=== PATIENT | male | born 1995 | race Caucasian/White ===

== ENCOUNTER 2018-11-28 19:18 | Emergency (ER) | payer OTHER ==
[2018-11-28 19:28] VITALS: BP 142/76
[2018-11-28] MEDS ORDERED: Ondansetron ODT TAB* 4 MG PO ONE (19:47)
--- NOTE | 2018-11-28 19:47 | UC ---
Abdominal Pain Male HPI - HPI Summary HPI Summary: c/o nausea and vomiting for 24 hours and diarrhea for 3-4 days. 3 other members of the family have had similar symptoms---no fevers or chills - History of Current Complaint Chief Complaint: UCGeneralIllness Stated Complaint: FLU-LIKE SYM Time Seen by Provider: 11/28/18 19:30 Hx Obtained From: Patient Onset/Duration: Sudden Onset, Lasting Days - 3-4 Timing: Constant Severity Initially: Mild Severity Currently: Mild Pain Intensity: 6 Pain Scale Used: 0-10 Numeric Location: Diffuse Radiates: No Character: Cramping Aggravating Factor(s): Food Alleviating Factor(s): Nothing Associated Signs And Symptoms: Positive: Nausea, Vomiting, Diarrhea - Allergies/Home Medications Allergies/Adverse Reactions: Allergies Allergy/AdvReac Type Severity Reaction Status Date / Time No Known Allergies Allergy Verified 11/28/18 19:28 Home Medications: Home Medications Pantoprazole TAB * [Protonix TAB*] 1 tab PO DAILY 11/28/18 [History Confirmed ] PMH/Surg Hx/FS Hx/Imm Hx Previously Healthy: No GI/ History: Gastroesophageal Reflux - Surgical History Surgical History: None - Family History Known Family History: Positive: None - Social History Occupation: Employed Full-time Lives: With Family Alcohol Use: None Substance Use Type: None Smoking Status (MU): Never Smoked Tobacco Review of Systems All Other Systems Reviewed And Are Negative: Yes Constitutional: Positive: Fatigue Skin: Positive: Negative Eyes: Positive: Negative ENT: Positive: Negative Respiratory: Positive: Negative Cardiovascular: Positive: Negative Gastrointestinal: Positive: Abdominal Pain, Vomiting, Diarrhea, Nausea Genitourinary: Positive: Negative Motor: Positive: Negative Neurovascular: Positive: Negative Musculoskeletal: Positive: Negative Neurological: Positive: Negative Psychological: Positive: Negative Is Patient Immunocompromised?: No Physical Exam Triage Information Reviewed: Yes Appearance: Well-Nourished, Ill-Appearing - mild, Pain Distress - mild Vital Signs: Initial Vital Signs Temp 99.2 F 11/28/18 19:24 Pulse 95 11/28/18 19:24 Resp 16 11/28/18 19:24 BP 142/76 11/28/18 19:24 Pulse Ox 96 11/28/18 19:24 Vital Signs Reviewed: Yes Eye Exam: Normal Eyes: Positive: Conjunctiva Clear ENT Exam: Normal ENT: Positive: Normal ENT inspection, Hearing grossly normal, Pharynx normal, TMs normal, Uvula midline. Negative: Nasal congestion, Trismus, Muffled voice, Hoarse voice, Dental tenderness, Sinus tenderness Dental Exam: Normal Neck exam: Normal Neck: Positive: Supple, Nontender, No Lymphadenopathy Respiratory Exam: Normal Respiratory: Positive: Chest non-tender, Lungs clear, Normal breath sounds, No respiratory distress, No accessory muscle use Cardiovascular Exam: Normal Cardiovascular: Positive: RRR, No Murmur, Pulses Normal, Brisk Capillary Refill Abdominal Exam: Other Abdomen Description: Positive: No Organomegaly, Soft, Other: - diffuse discomfort Bowel Sounds: Positive: Present Musculoskeletal Exam: Normal Musculoskeletal: Positive: Strength Intact, ROM Intact, No Edema Neurological Exam: Normal Neurological: Positive: Alert, Muscle Tone Normal Psychological Exam: Normal Skin Exam: Normal Abd Pain Male Course/Dx - Course Course Of Treatment: return to clear liquids with 30 cc at a time and advance sloly follow with pcp and re-check bp in next 1-2 weeks with pcp - Differential Dx/Clinical Impression Provider Diagnosis: Hypertension, Gastroenteritis Discharge - Sign-Out/Discharge Documenting (check all that apply): Patient Departure All imaging exams completed and their final reports reviewed: No Studies - Discharge Plan Condition: Stable Disposition: HOME Prescriptions: Ondansetron ODT TAB* [Zofran 4 MG Odt TAB*] 4 mg PO Q6H PRN #8 tab.odt PRN Reason: Nausea/Vomiting Patient Education Materials: Gastroenteritis (ED), Acute Nausea and Vomiting ( ED), Hypertension (ED), Nutrition Tips for Relief of Diarrhea (ED) Forms: *Work Release Referrals: [facility] [Outside] - 2 Days - Billing Disposition and Condition Condition: STABLE Disposition: Home
[2018-11-28 19:48] LABS: Influenza A Molecular NEGATIVE (Negative); Influenza B Molecular NEGATIVE (Negative)
== END 2018-11-28 20:01 | disposition home or self-care (01) ==
LOC: UCEAST 19:18
DX: I10 Essential (primary) hypertension (principal); K52.9 Noninfective gastroenteritis and colitis, unspecified
CPT/HCPCS: 99202; A9270-GY; G0463

== ENCOUNTER 2018-12-29 21:47 | Emergency (ER) | payer OTHER ==
[2018-12-29] MEDS ORDERED: Dexamethasone IV* 4 MG/ML 1 ML (4 MG) IV SLOW PU ONE (21:54)
[2018-12-29] MEDS ORDERED: Dexamethasone IV* 4 MG/ML 1 ML (4 MG) ONE (21:56)
[2018-12-29] MEDS ORDERED: EPINEPHrine,Rac 2.25% NEB.SOL* 0.5 ML ONE (21:57)
[2018-12-29 22:15] VITALS: BP 157/81
--- NOTE | 2018-12-29 22:17 | UC ---
Shortness of Breath HPI - HPI Summary HPI Summary: 23 yo ate chicken wings tonight and had a couple of shots About 15 minutes before arriving he coughed and felt like he was choking Choking episode lasted about 2-3 minutes Coughed up bright red blood now feels SOB pain suprasternal notch epigastric pain no hx dyspepsia no n/v/d states he has lost 20 pounds past 2 weeks since arrival here has carpal-pedialspasm and perioral numbness - History of Current Complaint Stated Complaint: SHORTNESS OF BREATH Time Seen by Provider: 12/29/18 21:52 Hx Obtained From: Patient Onset/Duration: Sudden Onset, Lasting Minutes Timing: Constant Current Severity: Moderate Dyspnea At: Rest Aggrevating Factors: Nothing - Allergy/Home Medications Allergies/Adverse Reactions: Allergies Allergy/AdvReac Type Severity Reaction Status Date / Time No Known Allergies Allergy Verified 11/28/18 19:28 PMH/Surg Hx/FS Hx/Imm Hx Previously Healthy: Yes GI/ History: Gastroesophageal Reflux - Surgical History Surgical History: None - Family History Known Family History: Positive: Hypertension - Social History Alcohol Use: None Substance Use Type: None Smoking Status (MU): Never Smoked Tobacco Review of Systems All Other Systems Reviewed And Are Negative: Yes Constitutional: Positive: Negative Skin: Positive: Negative Eyes: Positive: Negative ENT: Positive: Sore Throat Respiratory: Positive: Shortness Of Breath Cardiovascular: Positive: Negative Gastrointestinal: Positive: Negative Genitourinary: Positive: Negative Motor: Positive: Negative Neurovascular: Positive: Negative Musculoskeletal: Positive: Negative Neurological: Positive: Negative Psychological: Positive: Negative Physical Exam Triage Information Reviewed: Yes Appearance: Ill-Appearing, Other: - pale and hyperventilating Vital Signs Reviewed: Yes Eyes: Positive: Conjunctiva Inflamed ENT: Positive: Hearing grossly normal, Pharynx normal, Uvula midline, Other - NO STIDOR. Negative: Nasal congestion, Nasal drainage, Tonsillar swelling, Tonsillar exudate, Trismus, Muffled voice, Hoarse voice Dental Exam: Normal Neck: Positive: Supple, Nontender, No Lymphadenopathy Respiratory: Positive: Lungs clear, Normal breath sounds, No respiratory distress, No accessory muscle use, Respiratory distress Cardiovascular: Positive: RRR, No Murmur Abdomen Description: Positive: Nontender, No Organomegaly, Soft, Bruit. Negative: CVA Tenderness (L) Neurological: Positive: Alert Psychological Exam: Normal Skin Exam: Normal Shortness of Breath Dx - Course Course Of Treatment: D/W Dr. Noonan to [facility] [place] er via EMS given decadron and racemic epi neb here in case this is due to allergy - Differential Dx/Diagnosis Provider Diagnosis: Sore throat, Carpopedal spasm, Hyperventilation, Abdominal pain, Pallor Discharge - Sign-Out/Discharge Documenting (check all that apply): Patient Departure All imaging exams completed and their final reports reviewed: No Studies - Discharge Plan Condition: Stable Disposition: TRANS HIGHER LVL OF CARE FAC Referrals: No Primary Care Phys,NOPCP [Primary Care Provider] - - Billing Disposition and Condition Condition: STABLE Disposition: Trans Higher Lvl of Care Fac
== END 2018-12-29 22:30 | disposition short-term general hospital (02) ==
LOC: UCEAST 21:47
DX: J02.9 Acute pharyngitis, unspecified (principal); R29.0 Tetany; R06.4 Hyperventilation; R10.13 Epigastric pain; R23.1 Pallor; R06.02 Shortness of breath; H57.89 Other specified disorders of eye and adnexa; K21.9 Gastro-esophageal reflux disease without esophagitis
CPT/HCPCS: 96374; 99213; A9270-GY; G0463; J1100

== ENCOUNTER 2018-12-29 22:54 | Emergency (ER) | payer OTHER ==
[2018-12-29] MEDS ORDERED: Famotidine IV* 10 MG/ML 2 ML (20 mg) IV SLOW PU ONE (22:56)
[2018-12-29] MEDS ORDERED: Pantoprazole IV* 40 MG IV ONE (22:56)
[2018-12-29] MEDS ORDERED: Al Hydrox/Mg Hydrox/Simet LIQ* 30 ML UDC PO ONE (22:56)
[2018-12-29] MEDS ORDERED: Lidocaine 2% VISCOUS* 15 ML UDC PO ONE (22:56)
[2018-12-29] MEDS ORDERED: Lorazepam PYXIS KEY PRN (22:58)
[2018-12-29] MEDS ORDERED: LORazepam INJ* 2 MG/ML 1 ML VIAL IV PUSH ONE (22:58)
[2018-12-29] MEDS ORDERED: Lorazepam PYXIS KEY ONE (23:06)
[2018-12-29 23:23] LABS: ABS Basophils 0.1 10^3/ul (0-0.2); ABS Eosinophils 0.2 10^3/ul (0-0.6); ABS Lymphocytes 2.9 10^3/ul (1.0-4.8); ABS Monocytes 1.1 10^3/ul (0-0.8); ABS Neutrophils 9.7 10^3/ul (1.5-7.7); ABS Nucleated RBC 0 10^3/ul; Eosinophil % 1.7 %; Hematocrit 43 % (42-52); Hemoglobin 15.1 g/dL (14.0-18.0); Lymphocyte % 21.1 %; Mean Corpuscular HGB Conc 35 g/dL (31-36); Mean Corpuscular Hemoglobin 29 pg (27-31); Mean Corpuscular Volume 84 fL (80-94); Mean Platelet Volume 8.2 fL (7.4-10.4); Nucleated Red Blood Cells % 0.1; Platelet Count 392 10^3/uL (150-450); Red Blood Count 5.17 10^6 /uL (4.18-5.48); Red Cell Distribution Width 13 % (10.5-15)
[2018-12-29 23:30] LABS: Activated Partial Thrombo Time 29.4 seconds (26.0-36.3); INR 1.18 (0.82-1.09)
[2018-12-29 23:40] LABS: Albumin 4.8 g/dL (3.2-5.2); Albumin/Globulin Ratio 1.7 (1-3); BUN/Creatinine Ratio 14.4 (8-20); Calcium 9.9 mg/dL (8.6-10.3); EGFR African American 94.3 (>60); EGFR Non-African American 77.9 (>60); Globulin 2.9 g/dL (2-4); Total Bilirubin 0.4 mg/dL (0.2-1.0); Total Protein 7.7 g/dL (6.4-8.9)
[2018-12-30] LABS: Potassium 3.5 mmol/L (3.5-5.0)
--- NOTE | 2018-12-30 00:33 | ED ---
GI/ HPI - HPI Summary HPI Summary: 23-year-old male patient with history of significant GERD presents by ambulance from urgent care. The patient was treated thereafter he presented with abrupt onset of substernal discomfort, difficulty swallowing and spitting up a small amount of blood. He was treated with IV steroid, racemic epinephrine prior to calling the ambulance. The ambulance arrived to find him having a great deal of anxiety with carpopedal spasms. They were concerned that he possibly was having anaphylaxis and gave him intramuscular epinephrine. This did little for his symptoms. He presented with significant GERD symptoms to include bringing up small amounts of blood and a burning discomfort that extended down into his epigastrium. He was quite anxious but states he has had similar symptoms in the past and that this may be an exacerbated by chicken wings and several shots of fireball liquor prior to symptom onset. - History of Current Complaint Chief Complaint: EDAbdPain Time Seen by Provider: 12/29/18 22:55 Stated Complaint: GENERAL ILLNESS PER PT'S MOM Hx Obtained From: Patient, Family/Senior Wealth Advisor Pain Intensity: 0 - Allergy/Home Medications Allergies/Adverse Reactions: Allergies Allergy/AdvReac Type Severity Reaction Status Date / Time No Known Allergies Allergy Verified 11/28/18 19:28 PMH/Surg Hx/FS Hx/Imm Hx Endocrine/Hematology History: Denies: Hx Diabetes, Hx Thyroid Disease Cardiovascular History: Denies: Hx Hypertension Respiratory History: Denies: Hx Asthma, Hx Chronic Obstructive Pulmonary Disease (COPD) GI History: Reports: Hx Gastroesophageal Reflux Disease Denies: Hx Ulcer Infectious Disease History: No Infectious Disease History: Denies: Hx Hepatitis, Hx Human Immunodeficiency Virus (HIV), Traveled Outside the [place] in Last 30 Days - Family History Known Family History: Positive: Hypertension - Social History Alcohol Use: Weekly - patient drank tonight just prior to symptoms Substance Use Type: Reports: None Smoking Status (MU): Never Smoked Tobacco Review of Systems Positive: Fatigue. Negative: Fever Positive: Chest Pain Positive: Shortness Of Breath Positive: Vomiting, Nausea Neurological: Other - spasms in both hands Positive: Anxious All Other Systems Reviewed And Are Negative: Yes Physical Exam Triage Information Reviewed: Yes Vital Signs On Initial Exam: Initial Vitals Temp Pulse Resp BP Pulse Ox 98.7 F 93 20 148/91 97 12/29/18 22:56 12/29/18 22:56 12/29/18 22:56 12/29/18 22:56 12/29/18 22:56 Vital Signs Reviewed: Yes Appearance: Positive: Ill-Appearing, Pain Distress Skin: Positive: Warm, Skin Color Reflects Adequate Perfusion, Dry Head/Face: Positive: Normal Head/Face Inspection Eyes: Positive: EOMI ENT: Positive: Hearing grossly normal, Pharynx normal. Negative: Pharyngeal erythema Neck: Positive: Supple, Nontender, No Lymphadenopathy, Other: - No stridor Respiratory/Lung Sounds: Positive: Clear to Auscultation Cardiovascular: Positive: Tachycardia Abdomen Description: Positive: Soft, Other: - Mild tenderness in the epigastrium Bowel Sounds: Positive: Present Musculoskeletal: Positive: Normal, Strength/ROM Intact Neurological: Positive: Sensory/Motor Intact, Alert, Oriented to Person Place, Time Psychiatric: Positive: Anxious AVPU Assessment: Alert Diagnostics - Vital Signs Vital Signs Temp Pulse Resp BP Pulse Ox 12/30/18 00:00 76 16 95 12/29/18 23:57 76 19 130/73 96 12/29/18 23:53 77 22 139/77 95 12/29/18 23:27 78 13 131/75 97 12/29/18 23:24 78 13 133/78 97 12/29/18 23:18 18 12/29/18 23:00 85 17 96 12/29/18 22:57 86 18 148/80 96 12/29/18 22:56 98.7 F 93 20 148/91 97 - Laboratory Lab Results: Lab Results 12/29/18 12/29/18 12/29/18 Range/Units 23:08 23:08 23:08 WBC 14.0 H (3.5-10.8) 10^3/uL RBC 5.17 (4.18-5.48) 10^6 /uL Hgb 15.1 (14.0-18.0) g/dL Hct 43 (42-52) % MCV 84 (80-94) fL MCH 29 (27-31) pg MCHC 35 (31-36) g/dL RDW 13 (10.5-15) % Plt Count 392 (150-450) 10^3/uL MPV 8.2 (7.4-10.4) fL Neut % (Auto) 69.1 % Lymph % (Auto) 21.1 % [place] % (Auto) 7.6 % Eos % (Auto) 1.7 % Baso % (Auto) 0.5 % Absolute Neuts (auto) 9.7 H (1.5-7.7) 10^3/ul Absolute Lymphs (auto) 2.9 (1.0-4.8) 10^3/ul Absolute Monos (auto) 1.1 H (0-0.8) 10^3/ul Absolute Eos (auto) 0.2 (0-0.6) 10^3/ul Absolute Basos (auto) 0.1 (0-0.2) 10^3/ul Absolute Nucleated RBC 0 10^3/ul Nucleated RBC % 0.1 INR (Anticoag Therapy) 1.18 H (0.82-1.09) APTT 29.4 (26.0-36.3) seconds Sodium 139 (135-145) mmol/L Potassium 3.5 (3.5-5.0) mmol/L Chloride 104 (101-111) mmol/L Carbon Dioxide 24 (22-32) mmol/L Anion Gap 11 (2-11) mmol/L BUN 17 (6-24) mg/dL Creatinine 1.18 H (0.67-1.17) mg/dL Est GFR ( Amer) 94.3 (>60) Est GFR (Non-Af Amer) 77.9 (>60) BUN/Creatinine Ratio 14.4 (8-20) Glucose 104 H (70-100) mg/dL Calcium 9.9 (8.6-10.3) mg/dL Total Bilirubin 0.40 (0.2-1.0) mg/dL AST 24 (13-39) U/L ALT 30 (7-52) U/L Alkaline Phosphatase 91 (34-104) U/L Total Protein 7.7 (6.4-8.9) g/dL Albumin 4.8 (3.2-5.2) g/dL Globulin 2.9 (2-4) g/dL Albumin/Globulin Ratio 1.7 (1-3) Blood Type Antibody Screen 12/29/18 Range/Units 23:08 WBC (3.5-10.8) 10^3/uL RBC (4.18-5.48) 10^6 /uL Hgb (14.0-18.0) g/dL Hct (42-52) % MCV (80-94) fL MCH (27-31) pg MCHC (31-36) g/dL RDW (10.5-15) % Plt Count (150-450) 10^3/uL MPV (7.4-10.4) fL Neut % (Auto) % Lymph % (Auto) % [place] % (Auto) % Eos % (Auto) % Baso % (Auto) % Absolute Neuts (auto) (1.5-7.7) 10^3/ul Absolute Lymphs (auto) (1.0-4.8) 10^3/ul Absolute Monos (auto) (0-0.8) 10^3/ul Absolute Eos (auto) (0-0.6) 10^3/ul Absolute Basos (auto) (0-0.2) 10^3/ul Absolute Nucleated RBC 10^3/ul Nucleated RBC % INR (Anticoag Therapy) (0.82-1.09) APTT (26.0-36.3) seconds Sodium (135-145) mmol/L Potassium (3.5-5.0) mmol/L Chloride (101-111) mmol/L Carbon Dioxide (22-32) mmol/L Anion Gap (2-11) mmol/L BUN (6-24) mg/dL Creatinine (0.67-1.17) mg/dL Est GFR ( Amer) (>60) Est GFR (Non-Af Amer) (>60) BUN/Creatinine Ratio (8-20) Glucose (70-100) mg/dL Calcium (8.6-10.3) mg/dL Total Bilirubin (0.2-1.0) mg/dL AST (13-39) U/L ALT (7-52) U/L Alkaline Phosphatase (34-104) U/L Total Protein (6.4-8.9) g/dL Albumin (3.2-5.2) g/dL Globulin (2-4) g/dL Albumin/Globulin Ratio (1-3) Blood Type O Positive Antibody Screen Negative Result Diagrams: 12/29/18 23:08 12/29/18 23:08 Lab Statement: Any lab studies that have been ordered have been reviewed, and results considered in the medical decision making process. Re-Evaluation - Re-Evaluation First Eval Change: Improved - Patient felt much better with GI treatments. GIGU Course/Dx - Course Course Of Treatment: Patient presented in distress after receiving multiple medications including epinephrine for his symptoms. He was able to tell us that he drank alcohol and had chicken wings just prior to symptom onset. He does not feel foreign body sensation in his throat and is breathing fine. He got more anxious with treatments rendered to him previously. His symptoms all resolved with Ativan and GI treatments here. I talked with the GI doctor who will see him outpatient for endoscopy. He will be maintained on Carafate, Pepcid and he will double his outpatient pantoprazole. - Diagnoses Differential Diagnoses - Male: Other - Epiglottitis, tonsillar abscess, esophageal foreign body, acute PR, cocaine-related chest pain, acute gastritis, Boerhaave syndrome, Margarita-Fernandez syndrome Provider Diagnoses: Acute alcoholic gastritis with hemorrhage, History of gastroesophageal reflux ( GERD), Anxiety reaction - Critical Care Time Critical Care Time: 30-74 min - Critical care time is exclusive of separately billable procedures Discharge - Sign-Out/Discharge Documenting (check all that apply): Patient Departure Patient Received Moderate/Deep Sedation with Procedure: No - Discharge Plan Condition: Improved Disposition: HOME Prescriptions: Famotidine TAB* [Pepcid 20 MG TAB*] 40 mg PO BID #40 tab Sucralfate TAB* [Carafate*] 1 gm PO QID #60 tab Patient Education Materials: Gastritis (ED) Referrals: Radha Menon MD [Medical Doctor] - Additional Instructions: Double your pantoprazole for the next 5 days. Call first thing in the morning to schedule appointment with the GI doctors for outpatient endoscopy. Avoid alcohol, spicy foods, anti-inflammatory medication such as Aleve, ibuprofen and aspirin. Caffeine may also upset your stomach. Return with vomiting blood, weakness, dark black stools, worse or other concerns. - Billing Disposition and Condition Condition: IMPROVED Disposition: Home - Attestation Statements Document Initiated by Deisy: No
[2018-12-30 00:51] VITALS: BP 131/74
== END 2018-12-30 01:20 | disposition home or self-care (01) ==
LOC: ED 22:54
DX: K29.21 Alcoholic gastritis with bleeding (principal); F10.10 Alcohol abuse, uncomplicated; K21.9 Gastro-esophageal reflux disease without esophagitis; F41.9 Anxiety disorder, unspecified
CPT/HCPCS: 36415; 80053; 85025; 85610; 85730; 86850; 86900; 86901; 96374; 96375; 99283; A9270-GY; J2060

== ENCOUNTER 2019-03-20 21:04 | Emergency (ER) | payer OTHER ==
--- NOTE | 2019-03-20 21:12 | UC ---
Abdominal Pain Male HPI - HPI Summary HPI Summary: drank 12 beers last night at a graduation green party---has been vomiting all day tolerating water ok but cannot tolerate food---usual drinking pattern in every 2 -3 months-- - History of Current Complaint Chief Complaint: UCAbdominalPain Stated Complaint: vomITING Time Seen by Provider: 03/20/19 21:06 Hx Obtained From: Patient Onset/Duration: Sudden Onset, Lasting Days - 1, Still Present Timing: Constant Severity Initially: Moderate Severity Currently: Moderate Location: Discrete At: LUQ, Epigastric Radiates: No Character: Unable to describe Aggravating Factor(s): Food Alleviating Factor(s): Nothing Associated Signs And Symptoms: Positive: Nausea, Vomiting - Allergies/Home Medications Allergies/Adverse Reactions: Allergies Allergy/AdvReac Type Severity Reaction Status Date / Time No Known Allergies Allergy Verified 03/20/19 21:13 PMH/Surg Hx/FS Hx/Imm Hx Previously Healthy: No GI/ History: Gastroesophageal Reflux - Surgical History Surgical History: None - Family History Known Family History: Positive: Hypertension - Social History Occupation: Employed Full-time Lives: With Family Alcohol Use: Weekly - patient drank tonight just prior to symptoms Substance Use Type: None Smoking Status (MU): Never Smoked Tobacco Review of Systems All Other Systems Reviewed And Are Negative: Yes Constitutional: Positive: Negative Skin: Positive: Negative Eyes: Positive: Negative ENT: Positive: Negative Respiratory: Positive: Negative Cardiovascular: Positive: Negative Gastrointestinal: Positive: Abdominal Pain, Vomiting, Nausea Genitourinary: Positive: Negative Motor: Positive: Negative Neurovascular: Positive: Negative Musculoskeletal: Positive: Negative Neurological: Positive: Negative Psychological: Positive: Negative Is Patient Immunocompromised?: No Physical Exam Triage Information Reviewed: Yes Appearance: Well-Nourished, Ill-Appearing, Pain Distress Vital Signs Reviewed: Yes Eye Exam: Normal Eyes: Positive: Conjunctiva Clear ENT Exam: Normal ENT: Positive: Normal ENT inspection, Hearing grossly normal. Negative: Trismus , Muffled voice, Hoarse voice Dental Exam: Normal Neck exam: Normal Neck: Positive: Supple, Nontender, No Lymphadenopathy Respiratory Exam: Normal Respiratory: Positive: Chest non-tender, Lungs clear, Normal breath sounds, No respiratory distress, No accessory muscle use Cardiovascular Exam: Normal Cardiovascular: Positive: RRR, No Murmur, Pulses Normal, Brisk Capillary Refill Abdominal Exam: Other Abdomen Description: Positive: No Organomegaly, Soft, Other: - epigastric and slight left upper pain. Negative: CVA Tenderness (R), CVA Tenderness (L), Hepatomegaly, McBurney's Point Tenderness Bowel Sounds: Positive: Present Musculoskeletal Exam: Normal Musculoskeletal: Positive: Strength Intact, ROM Intact, No Edema Neurological Exam: Normal Neurological: Positive: Alert, Muscle Tone Normal Psychological Exam: Normal Skin Exam: Normal Re-Evaluation - Re-Evaluation First Eval Change: Improved - relief with zofran, keeping down clear liquids Abd Pain Male Course/Dx - Course Course Of Treatment: zofran, prilosec, sarafate---to ed without hesitation if symptoms worsen or not keeping down liquids--- - Differential Dx/Clinical Impression Provider Diagnosis: Alcohol abuse, episodic, Gastritis Discharge - Sign-Out/Discharge Documenting (check all that apply): Patient Departure All imaging exams completed and their final reports reviewed: No Studies - Discharge Plan Condition: Stable Disposition: HOME Prescriptions: Omeprazole (Nf) [Prilosec (NF)] 40 mg PO QAM #30 capsule. Ondansetron ODT TAB* [Zofran 4 MG Odt TAB*] 4 mg PO Q6H PRN #12 tab.odt PRN Reason: Nausea/Vomiting Sucralfate [Carafate] 1 gm PO ACHS #60 tablet Patient Education Materials: Gastritis (ED), At-Risk Alcohol Use (ED), Hypertension (ED) Referrals: Pancho Daly MD [Primary Care Provider] - 1 Week - Billing Disposition and Condition Condition: STABLE Disposition: Home - Attestation Statements Provider Attestation: Per institutional requirements, I have reviewed the chart, however, I was not consulted specifically or made aware of this patient by the midlevel provider. I did not personally evaluate, interact with , or disposition this patient.
[2019-03-20 21:13] VITALS: BP 146/78
[2019-03-20] MEDS ORDERED: Ondansetron ODT TAB* 4 MG PO ONE ×2 (21:16→21:51)
== END 2019-03-20 22:07 | disposition home health service (06) ==
LOC: UCEAST 21:04
DX: F10.10 Alcohol abuse, uncomplicated (principal); K29.70 Gastritis, unspecified, without bleeding
CPT/HCPCS: 99212; A9270-GY; G0463

== ENCOUNTER 2019-03-20 22:18 | Emergency (ER) | payer OTHER ==
[2019-03-20] MEDS ORDERED: NS 0.9% 1000 ML** 1,000 ML IV ONE ×2 (22:47→23:23)
[2019-03-20] MEDS ORDERED: Metoclopramide IV* 5 MG/ML 2 ML VIAL IV SLOW PU ONE (22:47)
[2019-03-20] MEDS ORDERED: Ketorolac INJ* 30 MG/ML 1 ML VIAL IV PUSH ONE (22:48)
[2019-03-20 23:06] LABS: ABS Eosinophils 0.1 10^3/ul (0-0.6); ABS Monocytes 1.5 10^3/ul (0-0.8); ABS Neutrophils 9.6 10^3/ul (1.5-7.7); Eosinophil % 0.5 %; Hematocrit 45 % (42-52); Hemoglobin 15.4 g/dL (14.0-18.0); Lymphocyte % 21.1 %; Mean Corpuscular HGB Conc 34 g/dL (31-36); Mean Corpuscular Hemoglobin 29 pg (27-31); Mean Corpuscular Volume 85 fL (80-94); Mean Platelet Volume 7.8 fL (7.4-10.4); Platelet Count 377 10^3/uL (150-450); Red Blood Count 5.26 10^6 /uL (4.18-5.48); Red Cell Distribution Width 13 % (10-15); White Blood Count 14.2 10^3/uL (3.5-10.8)
[2019-03-20 23:20] LABS: ALT 47 U/L (7-52); AST 24 U/L (13-39); Albumin 4.7 g/dL (3.2-5.2); Albumin/Globulin Ratio 1.5 (1-3); Alkaline Phosphatase 81 U/L (34-104); Amylase 23 U/L (29-103); Anion Gap 9 mmol/L (2-11); BUN/Creatinine Ratio 15.6 (8-20); Blood Urea Nitrogen 14 mg/dL (6-24); C Reactive Protein 3.18 mg/L (<8.01); CO2 Carbon Dioxide 29 mmol/L (22-32); Calcium 10.6 mg/dL (8.6-10.3); Chloride 102 mmol/L (101-111); EGFR African American 127.7 (>60); EGFR Non-African American 105.5 (>60); Globulin 3.1 g/dL (2-4); Glucose 106 mg/dL (70-100); Potassium 3.4 mmol/L (3.5-5.0); Sodium 140 mmol/L (135-145); Total Protein 7.8 g/dL (6.4-8.9)
[2019-03-20] MEDS ORDERED: Pantoprazole IV* 40 MG IV ONE (23:23)
--- NOTE | 2019-03-20 23:43 | ED ---
GI/ HPI - HPI Summary HPI Summary: 24-year-old male presents with vomiting and abdominal pain since this morning. He states that he had some beer and starting vomiting afterwards. He admits to epigastric pain. Denies any chest pain or shortness breath. he was given Zofran at urgent care and still feels nauseous. Pain does not radiate to the back. has never had this pain before. Has no medical conditions. He does not take ibuprofen on a normal basis. He does not drink everyday. No fevers. No diarrhea or constipation. No urinary symptoms. - History of Current Complaint Chief Complaint: EDNauseaVomitDiarrh Time Seen by Provider: 03/20/19 22:38 Stated Complaint: DEHYDRATED/ABD PAIN PER PT Pain Intensity: 8 - Allergy/Home Medications Allergies/Adverse Reactions: Allergies Allergy/AdvReac Type Severity Reaction Status Date / Time No Known Allergies Allergy Verified 03/20/19 21:13 PMH/Surg Hx/FS Hx/Imm Hx Endocrine/Hematology History: Denies: Hx Diabetes, Hx Thyroid Disease Cardiovascular History: Denies: Hx Hypertension Respiratory History: Denies: Hx Asthma, Hx Chronic Obstructive Pulmonary Disease (COPD) GI History: Reports: Hx Gastroesophageal Reflux Disease Denies: Hx Ulcer Infectious Disease History: No Infectious Disease History: Denies: Hx Hepatitis, Hx Human Immunodeficiency Virus (HIV), Traveled Outside the [place] in Last 30 Days - Family History Known Family History: Positive: Hypertension - Social History Alcohol Use: Weekly - patient drank tonight just prior to symptoms Substance Use Type: Reports: None Smoking Status (MU): Never Smoked Tobacco Type: eCigarettes Review of Systems Negative: Fever Negative: Chest Pain Negative: Shortness Of Breath Positive: Abdominal Pain, Vomiting, Nausea. Negative: Diarrhea All Other Systems Reviewed And Are Negative: Yes Physical Exam Triage Information Reviewed: Yes Vital Signs On Initial Exam: Initial Vitals Temp Pulse Resp BP Pulse Ox 98.7 F 71 18 154/101 98 03/20/19 22:19 03/20/19 22:19 03/20/19 22:19 03/20/19 22:19 03/20/19 22:19 Vital Signs Reviewed: Yes Appearance: Positive: Well-Appearing Skin: Positive: Warm, Dry Head/Face: Positive: Normal Head/Face Inspection Eyes: Positive: Normal, Conjunctiva Clear ENT: Positive: Pharynx normal Respiratory/Lung Sounds: Positive: Clear to Auscultation, Breath Sounds Present Cardiovascular: Positive: Normal, RRR Abdomen Description: Positive: Soft, Other: - tenderness in LUQ Bowel Sounds: Positive: Present Musculoskeletal: Positive: Normal Neurological: Positive: Normal Psychiatric: Positive: Normal Diagnostics - Vital Signs Vital Signs Temp Pulse Resp BP Pulse Ox 03/20/19 22:19 98.7 F 71 18 154/101 98 - Laboratory Lab Results: Lab Results 03/20/19 03/20/19 03/20/19 Range/Units 22:56 22:56 22:56 WBC 14.2 H (3.5-10.8) 10^3/uL RBC 5.26 (4.18-5.48) 10^6 /uL Hgb 15.4 (14.0-18.0) g/dL Hct 45 (42-52) % MCV 85 (80-94) fL MCH 29 (27-31) pg MCHC 34 (31-36) g/dL RDW 13 (10-15) % Plt Count 377 (150-450) 10^3/uL MPV 7.8 (7.4-10.4) fL Neut % (Auto) 67.8 % Lymph % (Auto) 21.1 % [place] % (Auto) 10.3 % Eos % (Auto) 0.5 % Baso % (Auto) 0.3 % Absolute Neuts (auto) 9.6 H (1.5-7.7) 10^3/ul Absolute Lymphs (auto) 3.0 (1.0-4.8) 10^3/ul Absolute Monos (auto) 1.5 H (0-0.8) 10^3/ul Absolute Eos (auto) 0.1 (0-0.6) 10^3/ul Absolute Basos (auto) 0.0 (0-0.2) 10^3/ul Absolute Nucleated RBC 0.0 10^3/ul Nucleated RBC % 0.0 Sodium 140 (135-145) mmol/L Potassium 3.4 L (3.5-5.0) mmol/L Chloride 102 (101-111) mmol/L Carbon Dioxide 29 (22-32) mmol/L Anion Gap 9 (2-11) mmol/L BUN 14 (6-24) mg/dL Creatinine 0.90 (0.67-1.17) mg/dL Est GFR ( Amer) 127.7 (>60) Est GFR (Non-Af Amer) 105.5 (>60) BUN/Creatinine Ratio 15.6 (8-20) Glucose 106 H (70-100) mg/dL Lactic Acid 1.0 (0.5-2.0) mmol/L Calcium 10.6 H (8.6-10.3) mg/dL Magnesium 2.0 (1.9-2.7) mg/dL Total Bilirubin 0.70 (0.2-1.0) mg/dL AST 24 (13-39) U/L ALT 47 (7-52) U/L Alkaline Phosphatase 81 (34-104) U/L C-Reactive Protein 3.18 (<8.01) mg/L Total Protein 7.8 (6.4-8.9) g/dL Albumin 4.7 (3.2-5.2) g/dL Globulin 3.1 (2-4) g/dL Albumin/Globulin Ratio 1.5 (1-3) Amylase 23 L (29-103) U/L Lipase < 10 L (11.0-82.0) U/L Result Diagrams: 03/20/19 22:56 03/20/19 22:56 Lab Statement: Any lab studies that have been ordered have been reviewed, and results considered in the medical decision making process. Re-Evaluation - Re-Evaluation First Eval Re-Evaluation Time: 01:00 Comment: able to tolerate liquids, abd pain resolved GIGU Course/Dx - Course Course Of Treatment: 24-year-old male presents with vomiting and abdominal pain since this morning. He states that he had some beer and starting vomiting afterwards. He admits to epigastric pain. Denies any chest pain or shortness breath. he was given Zofran at urgent care and still feels nauseous. Pain does not radiate to the back. has never had this pain before. Has no medical conditions. He does not take ibuprofen on a normal basis. He does not drink everyday. No fevers. No diarrhea or constipation. No urinary symptoms. On exam tenderness left upper quadrant. wbc 14 likely due to vomiting. amylase and lipase normal. lft normal. Gave fluids Toradol and Reglan and symptoms resolved. Was able to tolerate liquids in the ED. Patient was prescribed omeprazole and Zofran at urgent care so can continue such. Patient understands agrees with plan. - Diagnoses Differential Diagnoses - Male: Gastroenteritis (Bacterial), Gastroenteritis ( Viral), Vomiting Provider Diagnoses: Vomiting, Epigastric pain Discharge - Sign-Out/Discharge Documenting (check all that apply): Patient Departure Patient Received Moderate/Deep Sedation with Procedure: No - Discharge Plan Condition: Good Disposition: HOME Patient Education Materials: Acute Nausea and Vomiting (ED) Forms: *Work Release Referrals: Pancho Daly MD [Primary Care Provider] - Additional Instructions: take zofran every 6 hours for nausea Follow up with primary eat a bland diet for next couple days take omeprazole as prescribed by urgent care Return to ED if develop any new or worsening symptoms - Billing Disposition and Condition Condition: GOOD Disposition: Home
[2019-03-21] MEDS ORDERED: O ndansetron ODT 4MG 5TAB PRPK 4 MG PAK PO ONE (01:00)
[2019-03-21 01:12] VITALS: BP 138/78
== END 2019-03-21 01:11 | disposition home or self-care (01) ==
LOC: ED 22:18
DX: R11.10 Vomiting, unspecified (principal); R10.13 Epigastric pain
CPT/HCPCS: 36415; 80053; 82150; 83605; 83690; 83735; 85025; 86140; 96361; 96374; 96375; 99283; A9270-GY; J1885; J2765

== ENCOUNTER 2019-08-19 18:17 | Emergency (ER) | payer OTHER ==
[2019-08-19 18:51] VITALS: BP 146/74
--- NOTE | 2019-08-19 19:20 | UC ---
Throat Pain/Nasal [place] HPI - HPI Summary HPI Summary: Patient is a 24-year-old male with a three-day history of progressively worsening sore throat. He has had no fever. He denies any myalgias. He does have a mild headache. He states that today it is hard for him to swallow liquids. He has a 14 or [id number] son who is ill. Today he awoke with both eyes red and a scant amount of ocular discharge. He has no photophobia. He denies any stiff neck. He has no chest pain or shortness of breath. He has a mild cough. He does have a mild runny nose. He has no nausea vomiting or diarrhea. - History of Current Complaint Chief Complaint: UCRespiratory Stated Complaint: SORE THROAT Time Seen by Provider: 08/19/19 19:02 Hx Obtained From: Patient Onset/Duration: Gradual Onset, Lasting Days Severity: Severe Pain Intensity: 9 Pain Scale Used: 0-10 Numeric Cough: Nonproductive Associated Signs & Symptoms: Positive: Nasal Discharge - Epiglottits Risk Factors Epiglottis Risk Factors: Negative - Allergies/Home Medications Allergies/Adverse Reactions: Allergies Allergy/AdvReac Type Severity Reaction Status Date / Time No Known Allergies Allergy Verified 08/19/19 18:51 Home Medications: Home Medications Acetaminophen [Tylenol] 650 mg PO Q6HR 08/19/19 [History Confirmed 08/19/19] PMH/Surg Hx/FS Hx/Imm Hx Previously Healthy: Yes - Surgical History Surgical History: None - Family History Known Family History: Positive: Hypertension - Social History Alcohol Use: Weekly Substance Use Type: None Smoking Status (MU): Never Smoked Tobacco Type: eCigarettes Review of Systems All Other Systems Reviewed And Are Negative: Yes Constitutional: Positive: Fever, Chills Eyes: Positive: Drainage - scant, Eye Redness ENT: Positive: Sore Throat Respiratory: Positive: Cough Cardiovascular: Positive: Negative Gastrointestinal: Positive: Negative Genitourinary: Positive: Negative, Dysuria Motor: Positive: Negative Neurovascular: Positive: Negative Musculoskeletal: Positive: Negative Neurological: Positive: Negative Psychological: Positive: Negative Physical Exam Triage Information Reviewed: Yes Appearance: Well-Appearing, No Pain Distress, Well-Nourished Vital Signs: Initial Vital Signs Temp 98.9 F 08/19/19 18:46 Pulse 72 08/19/19 18:46 Resp 16 08/19/19 18:46 BP 146/74 08/19/19 18:46 Pulse Ox 99 08/19/19 18:46 Vital Signs Reviewed: Yes Eyes: Positive: Conjunctiva Clear ENT: Positive: Hearing grossly normal, Pharyngeal erythema, Nasal congestion, TMs normal, Tonsillar swelling, Uvula midline. Negative: Tonsillar exudate, Trismus, Muffled voice Neck: Positive: Supple, Enlarged Nodes @ - ant cerv Respiratory: Positive: Lungs clear, Normal breath sounds, No respiratory distress, No accessory muscle use Cardiovascular: Positive: RRR, No Murmur Abdominal Exam: Normal Bowel Sounds: Positive: Present Musculoskeletal: Positive: ROM Intact, No Edema Neurological: Positive: Alert Psychological Exam: Normal Skin Exam: Normal Diagnostics - Laboratory Lab Results: strep (-) Throat Pain/Nasal Course/Dx - Differential Dx/Diagnosis Provider Diagnosis: Tonsillitis, Conjunctivitis, acute, bilateral, Elevated BP without diagnosis of hypertension Discharge ED - Sign-Out/Discharge Documenting (check all that apply): Patient Departure All imaging exams completed and their final reports reviewed: No Studies - Discharge Plan Condition: Stable Disposition: HOME Prescriptions: predniSONE [Prednisone 20 MG TAB] 60 mg PO DAILY #6 tab Patient Education Materials: Tonsillitis (ED) Referrals: Pancho Daly MD [Primary Care Provider] - 3 Days (if not better) Additional Instructions: your strep test was negative BP high here needs rechecking in 2-20 weeks - Billing Disposition and Condition Condition: STABLE Disposition: Home
== END 2019-08-19 19:33 | disposition home or self-care (01) ==
LOC: UCEAST 18:17
DX: J03.90 Acute tonsillitis, unspecified (principal); H10.33 Unspecified acute conjunctivitis, bilateral; R03.0 Elevated blood-pressure reading, without diagnosis of hypertension; R09.81 Nasal congestion; R51 Headache
CPT/HCPCS: 87651; 99212; G0463; J7512